=== PATIENT | male | born 1940 | race Caucasian/White ===

== ENCOUNTER 2017-08-04 15:24 | Emergency (ER) | payer MEDICARE, OTHER ==
--- OUTSIDE RECORDS SUMMARY | 2017-08-04 15:37 | XMS REPORT ---
:1940 External Reference #:[id number] Author Organization [employer] Address [address] [address] Phone [phone] Care Team Providers Name Role Phone Richie Ly MD Care Team Information Design Center Consultant Unavailable Richie Ly MD Primary Care Physician Unavailable Payers Type Date Identification Numbers Payment Provider Subscriber Commercial Expires: Policy Number: [id number] [facility] Tequila Martin 2008 Group Number: [id number] [address] PayID: [id number] [place] [address] Medigap Part B Effective: 2004 Policy Number: [id number] Medicare Tequila Martin PayID: [id number] [address] [place] [address] Medigap Part B Effective: Policy Number: [employer] Tequila Martin 2009 [id number] Group Number: [id number] [address] PayID: [id number] [place] [address] Advance Directives Type Date Description Status Comment Other Directive 04/06/2017 Health Care Proxy Current and Verified Problems Date Description Provider Status Onset: 05/15/2007 Hydrocele Michael Ramirez M.D.,FACP Onset: 08/28/2015 History of melanoma in situ of Michael Ramirez skin Sofie,FACP Onset: 05/15/2007 Hyperlipidemia Michael Ramirez M.D.,FACP Onset: 05/15/2007 Impacted cerumen Michael Ramirez M.D.,FACP Onset: 12/30/2013 Benign prostatic hypertrophy Richie Ly, Active without outflow obstruction Sofie,FACP Onset: 04/04/2017 Obstructive sleep apnea syndrome Wendi Ignacio MD Active Onset: 05/15/2007 Benign essential hypertension Richie Ly, Inactive Sofie,FACP Inactive: 12/30/2013 Onset: 01/26/2017 Difficulty breathing Wendi Ignacio MD Inactive Inactive: 07/07/2017 Onset: 06/15/2011 Chronic Venous Embolism & Richie Ly M.D.,FACP Resolved Thrombosis, Other Specified Veins Resolved: 12/30/2013 Onset: 07/13/2011 Current tear of medial Jacquelyn Shellie Crawley.Christel. Resolved cartilage AND/OR meniscus of knee Resolved: 12/30/2013 Onset: 05/20/2015 Malignant melanoma of scalp Richie Ly M.D.,FACP Resolved and/or neck Resolved: 08/28/2015 Onset: 05/20/2015 Onur melanoma level 1 Richie Ly M.D.,FACP Resolved Resolved: 08/28/2015 Family History Date Family Member(s) Problem(s) Comments Father Peripheral Vascular Disease (PVD) Father due to Unknown Causes () Mother due to 87 () Siblings None Social History Type Date Description Comments Marital Status Marital Status Significant Other in [place] Occupation Retired civil/env engineering Cigarette Use Quit at age 18 ETOH Use 12/09/2016 Consumes 2 glasses of wine per day Recreational Drug Use Denies Drug Use Smoking Patient is a former quit at age 18-began at smoker age 16. Daily Caffeine Consumes on average 4 cups of regular coffee per day Exercise Type/Frequency 12/09/2016 Exercises regularly Walks, gardens, plays squash General Hx Text 1 daughter, Lives in [place] Allergies, Adverse Reactions, Alerts Date Description Reaction Status Severity Comments 05/15/2007 Codeine active 05/15/2007 Vioxx active 08/08/2011 Hydrocodone VOMITING active Medications Medication Date Status Form Strength Qnty SIG Indications Ordering Provider Finasteride 07/22/ Active Tablets 5mg 90tabs qd po Richie Ly M.D.,FACP Cialis / Active Tablets 20mg 1/2- 1 as Unknown 0000 needed as directed Chondroitin / Active Capsules 1500mg 1 cap bid Unknown Sulfate 0000 Fluticasone 12/09/ Hx Suspension 50mcg/Act 16unit 1 spray Richie Propionate 2017 - s each Nancy. Malachi, 01/25/ nostril in Devin.Ludmila,FACP 2017 the evening Ciclopirox 12/30/ Hx Kit 8&5% 3bottl topical qd 681.11 Richie Topical 2014 - es for 6 D. Malachi, Solution Kit 12/30/ days, Sofie,FACP 2013 remove q week, repeat up to 48 wks Terbinafine 12/30/ Hx Tablets 250mg 45tabs take one 681.11 Richie HCL 2013 - tablet by Ludmila Ly, 08/28/ mouth one Sofie,FACP 2016 time daily for 12 weeks Ciclopirox 09/26/ Hx Solution 8% 3bottl topical qd Richie Nail Lacquer 2012 - es for 6 D. Malachi, 12/30/ days, Sofie,FACP 2013 remove q week, repeat up to 48 wks Debrox 07/13/ Hx Solution 6.5% 15ml 5 gtts to Jacquelyn 2012 - both ears [place] 05/31/ x 3 days tson, N.P. 2011 Ciclopirox 09/03/ Hx Solution 8% 3bottl topical qd Richie Nail Lacquer 2010 - es for 6 D. Malachi, 05/31/ daysSofie,FACP 2011 remove q week, repeat up to 48 wks Avodart 07/22/ Hx Capsules 0.5mg 30caps 1 po qd Richie 2010 Joe Ly, 07/22/ MGueroDGuero,FACP 2010 Fish Oil 07/22/ Hx Capsules 1000mg 1 po bid Richie 2010 Joe Ly, 06/15/ M.D.,FACP 2010 Multivitamin/ 05/14/ Hx Capsules 1 PO qd Richie Minerals 2007 - Ludmila Ly, 07/22/ MGueroDGuero,FACP 2010 Vitamin C 05/14/ Hx Tablets 250mg po qd Richie 2007 Joe Ly, 01/20/ M.D.,FACP 2010 Tamsulosin / Hx Capsules 0.4mg 30caps patient Unknown HCL 0000 - d/c'ed 2012 Advil / Hx Capsules 200mg 100cap prn Unknown 0000 - s 2016 Glucosamine / Hx Capsules 1 po qd Unknown 0000 - 2015 Medications Administered in Office Medication Date Status Form Strength Qnty SIG Indications Ordering Provider Depomedrol Administered Injection Dirk Cameron, 80MG 012 M.D. Depomedrol Administered Injection Dirk Cameron, 80MG 012 M.D. Depomedrol Administered Injection Dirk Cameron, 80MG 011 M.D. Immunizations CPT Code Status Date Vaccine Lot # [id number] Given 05/17/2017 Influenza Virus Vaccine, Quadrivalent, Split, Preservative Free [id number] Given 04/14/2016 Fluzone Vaccine [id number] Given 08/28/2015 Pneumococcal Conjugate Vaccine 13 Valent For [id number] Intramuscular Use 83496 Given 05/28/2015 Flu Vaccine Split Virus Preservative Free For Indiv 3Yr Older 04848 Given 04/11/2012 Influenza Virus 3Yrs & Over 82289 Given 08/08/2011 Tdap - Tetanus/Diptheria/Acellular Pertussis [id number] 19162 Given 04/11/2011 Influenza Virus 3Yrs & Over 13779 Given 04/11/2010 Influenza Virus 3Yrs & Over 09908 Given 07/07/2008 Zoster (Zostavax) [id number] 99951 Given 05/14/2008 Pneumonia Vaccine [id number] Given 05/14/2008 Pneumonia Vaccine [id number] Vital Signs Date Vital Result Comment 07/07/2017 Weight 215.00 lb w/boots Heart Rate 62 /min BP Systolic Sitting 122 mmHg BP Diastolic Sitting 80 mmHg Body Temperature 96.7 F O2 % BldC Oximetry 94 % 05/23/2017 Height 69.25 inches 5'9.25" Weight 213.50 lb Heart Rate 66 /min BP Systolic Sitting 120 mmHg Lue large cuff BP Diastolic Sitting 78 mmHg Lue large cuff Respiratory Rate 16 /min O2 % BldC Oximetry 95 % On Ra BMI (Body Mass Index) 31.3 kg/m2 04/06/2017 Height 69.25 inches 5'9.25" Weight 213.19 lb BMI (Body Mass Index) 31.3 kg/m2 04/04/2017 Height 69.25 inches 5'9.25" Weight 216.00 lb Heart Rate 72 /min BP Systolic Sitting 124 mmHg BP Diastolic Sitting 80 mmHg Respiratory Rate 14 /min O2 % BldC Oximetry 96 % BMI (Body Mass Index) 31.7 kg/m2 01/26/2017 Height 69.25 inches 5'9.25" Weight 213.00 lb Heart Rate 60 /min BP Systolic Sitting 136 mmHg BP Diastolic Sitting 88 mmHg Respiratory Rate 14 /min O2 % BldC Oximetry 96 % BMI (Body Mass Index) 31.2 kg/m2 Neck Circumference in inches 16 12/09/2016 Height 69.25 inches 5'9.25" Weight 208.50 lb Heart Rate 64 /min BP Systolic Sitting 138 mmHg BP Diastolic Sitting 82 mmHg BP Systolic Recheck 132 mmHg BP Diastolic Recheck 85 mmHg Body Temperature 97.9 F O2 % BldC Oximetry 97 % BMI (Body Mass Index) 30.6 kg/m2 08/28/2015 Height 69.5 inches 5'9.50" Weight 214.38 lb Heart Rate 62 /min BP Systolic Sitting 122 mmHg BP Diastolic Sitting 88 mmHg Body Temperature 96.2 F O2 % BldC Oximetry 95 % BMI (Body Mass Index) 31.2 kg/m2 12/30/2013 Height 69.5 inches 5'9.50" Weight 208.50 lb Heart Rate 64 /min BP Systolic Sitting 116 mmHg BP Diastolic Sitting 74 mmHg Body Temperature 98.2 F BMI (Body Mass Index) 30.3 kg/m2 11/14/2012 Height 69.5 inches 5'9.50" Weight 209.50 lb Heart Rate 62 /min BP Systolic Sitting 124 mmHg BP Diastolic Sitting 84 mmHg BMI (Body Mass Index) 30.5 kg/m2 05/31/2012 Height 69.75 inches 5'9.75" Weight 212.00 lb Heart Rate 76 /min BP Systolic Sitting 110 mmHg BP Diastolic Sitting 80 mmHg BMI (Body Mass Index) 30.6 kg/m2 08/08/2011 Height 69.75 inches 5'9.75" Weight 212.00 lb Heart Rate 68 /min BP Systolic Sitting 135 mmHg BP Diastolic Sitting 88 mmHg BMI (Body Mass Index) 30.6 kg/m2 07/13/2011 Height 70 inches 5'10" Weight 215.00 lb Heart Rate 58 /min BP Systolic Sitting 132 mmHg l BP Diastolic Sitting 84 mmHg l BMI (Body Mass Index) 30.8 kg/m2 06/17/2011 Height 70 inches 5'10" Weight 205.00 lb Heart Rate 72 /min BP Systolic 130 mmHg BP Diastolic 85 mmHg BMI (Body Mass Index) 29.4 kg/m2 06/15/2011 Height 69.5 inches 5'9.50" Weight 211.25 lb Heart Rate 64 /min BP Systolic Sitting 132 mmHg BP Diastolic Sitting 88 mmHg BMI (Body Mass Index) 30.7 kg/m2 07/22/2010 Height 70.25 inches 5'10.25" Weight 210.00 lb Heart Rate 66 /min BP Systolic Sitting 136 mmHg BP Diastolic Sitting 80 mmHg BMI (Body Mass Index) 29.9 kg/m2 07/01/2010 Height 70.25 inches 5'10.25" Weight 207.00 lb Heart Rate 72 /min BP Systolic Sitting 110 mmHg BP Diastolic Sitting 80 mmHg BMI (Body Mass Index) 29.5 kg/m2 05/14/2009 Height 70.25 inches 5'10.25" Weight 207.50 lb Heart Rate 56 /min BP Systolic Sitting 126 mmHg BP Diastolic Sitting 76 mmHg Respiratory Rate 16 /min Body Temperature 97.5 F BMI (Body Mass Index) 29.6 kg/m2 11/28/2008 Weight 208.00 lb Heart Rate 67 /min BP Systolic Sitting 136 mmHg BP Diastolic Sitting 84 mmHg O2 % BldC Oximetry 96 % 10/28/2008 Height 70 inches 5'10" Weight 209.00 lb Heart Rate 72 /min BP Systolic Sitting 152 mmHg BP Diastolic Sitting 80 mmHg BMI (Body Mass Index) 30.0 kg/m2 05/14/2008 Height 70 inches 5'10" Weight 210.00 lb Heart Rate 72 /min BP Systolic Sitting 126 mmHg BP Diastolic Sitting 78 mmHg BMI (Body Mass Index) 30.1 kg/m2 05/15/2007 Height 70 inches 5'10" Weight 214.00 lb Heart Rate 66 /min BP Systolic Sitting 124 mmHg BP Diastolic Sitting 80 mmHg BMI (Body Mass Index) 30.7 kg/m2 Results Test Date Test Result H/L Range Note Laboratory test finding 12/06/2016 PSA Screening 1.178 ng/mL 0-4.0 1 Lipid Profile (Trig/Chol/HDL) 12/06/2016 Triglycerides 77 mg/dL 2 Cholesterol 178 mg/dL 3 HDL Cholesterol 55.5 mg/dL 4 LDL Cholesterol 107 mg/dL 5 Basic Metabolic Panel 12/06/2016 Sodium 138 mmol/L 133-145 Potassium 4.3 mmol/L 3.5-5.0 Chloride 106 mmol/L 101-111 Co2 Carbon Dioxide 26 mmol/L 22-32 Anion Gap 6 mmol/L 2-11 Glucose 82 mg/dL 70-100 Blood Urea Nitrogen 22 mg/dL 6-24 Creatinine 0.78 mg/dL 0.67-1.17 BUN/Creatinine Ratio 28.2 High 8-20 Calcium 9.0 mg/dL 8.6-10.3 Egfr Non- 96.5 >60 Egfr 124.1 >60 6 CBC Auto Diff 12/06/2016 White Blood Count 5.5 10^3/uL 3.5-10.8 Red Blood Count 4.44 10^6/uL 4.0-5.4 Hemoglobin 13.7 g/dL Low 14.0-18.0 Hematocrit 42 % 42-52 Mean Corpuscular Volume 94 fL 80-94 Mean Corpuscular Hemoglobin 31 pg 27-31 Mean Corpuscular HGB Conc 33 g/dL 31-36 Red Cell Distribution Width 14 % 10.5-15 Platelet Count 190 10^3/uL 150-450 Mean Platelet Volume 9 um3 7.4-10.4 Abs Neutrophils 2.8 10^3/uL 1.5-7.7 Abs Lymphocytes 2.1 10^3/uL 1.0-4.8 Abs Monocytes 0.4 10^3/uL 0-0.8 Abs Eosinophils 0.2 10^3/uL 0-0.6 Abs Basophils 0 10^3/uL 0-0.2 Abs Nucleated RBC 0 10^3/uL Granulocyte % 50.8 % 38-83 Lymphocyte % 37.8 % 25-47 Monocyte % 7.8 % 1-9 Eosinophil % 3.1 % 0-6 Basophil % 0.5 % 0-2 Nucleated Red Blood Cells % 0 Lipid Profile (Trig/Chol/HDL) 07/09/2015 Triglycerides 79 mg/dL 7 Cholesterol 203 mg/dL 8 HDL Cholesterol 61.1 mg/dL 9 LDL Cholesterol 126 mg/dL 10 Basic Metabolic Panel 07/09/2015 Sodium 138 mmol/L 133-145 Potassium 4.2 mmol/L 3.5-5.0 Chloride 104 mmol/L 101-111 Co2 Carbon Dioxide 27 mmol/L 22-32 Anion Gap 7 mmol/L 2-11 Glucose 92 mg/dL 70-100 Blood Urea Nitrogen 15 mg/dL 6-24 Creatinine 0.86 mg/dL 0.67-1.17 BUN/Creatinine Ratio 17.4 8-20 Calcium 9.1 mg/dL 8.6-10.3 Egfr Non- 86.5 >60 Egfr 111.2 >60 11 Laboratory test 06/11/2015 Surgical Pathology SEE RESULT BELOW 12 finding Laboratory test 06/11/2015 Surgical Pathology SEE RESULT BELOW 13 finding Laboratory test 04/14/2015 PSA Diagnostic 0.939 ng/mL 0-4.0 14 finding Laboratory test 03/20/2014 Erythrocyte Sed Rate 10 mm/Hr 0-40 finding CBC With Manual Diff 03/20/2014 White Blood Count 4.7 10^3/uL Low 4.8- 10.8 Red Blood Count 4.29 10^6/uL 4.0-5.4 Hemoglobin 13.7 g/dL Low 14.0-18.0 Hematocrit 40 % Low 42-52 Mean Corpuscular Volume 94 fL 80-94 Mean Corpuscular Hemoglobin 32 pg High 27-31 Mean Corpuscular HGB Conc 34 g/dL 31-36 Red Cell Distribution Width 13 % 10.5-15 Platelet Count 186 10^3/uL 150-450 Mean Platelet Volume 8 um3 7.4-10.4 Abs Neutrophils 2.4 10^3/uL 1.5-7.7 Abs Lymphocytes 1.7 10^3/uL 1.0-4.8 Abs Monocytes 0.4 10^3/uL 0-0.8 Abs Eosinophils 0.2 10^3/uL 0-0.6 Abs Basophils 0 10^3/uL 0-0.2 Abs Nucleated RBC 0 10^3/uL Neutrophil % 51 % 38-83 Lymphocytes % 35 % 25-47 Monocytes % 6 % 0-13 Eosinophils % 5 % 0-6 Reactive Lymph % 3 % 0-6 RBC Morphology Normal Normal Basic Metabolic Panel 03/20/2014 Sodium 137 mmol/L 133-145 Potassium 4.2 mmol/L 3.7-5.6 Chloride 106 mmol/L 101-111 Co2 Carbon Dioxide 27 mmol/L 22-32 Anion Gap 4 mmol/L 2-11 Glucose 90 mg/dL 70-100 Blood Urea Nitrogen 14 mg/dL 6-24 Creatinine 0.85 mg/dL 0.67-1.17 BUN/Creatinine Ratio 16.5 8-20 Calcium 8.8 mg/dL 8.6-10.3 Egfr Non- 87.9 >60 Egfr 113.0 >60 15 Liver Function Panel 03/20/2014 Total Protein 6.2 g/dL Low 6.4-8.9 Albumin 4.1 g/dL 3.2-5.2 Globulin 2.1 g/dL 2-4 Albumin/Globulin Ratio 2.0 1-3 Total Bilirubin 0.70 mg/dL 0.2-1.0 Direct Bilirubin 0.10 mg/dL 0.03-0.18 Indirect Bilirubin 0.6 mg/dL 0.3-1.0 Alkaline Phosphatase 56 U/L 34-104 Alt 11 U/L 7-52 Ast 17 U/L 13-39 Lipid Profile (Trig/Chol/HDL) 12/24/2013 Triglycerides 99 mg/dL 16, 17 Cholesterol 195 mg/dL 16, 18 HDL Cholesterol 57.9 mg/dL 16, 19 LDL Cholesterol 117 mg/dL 16, 20 Laboratory test finding 12/24/2013 PSA Screening 1.525 ng/mL 0-4.000 16 , 21 Laboratory test finding 02/27/2013 PSA Screening 1.0 ng/mL 0-4.0 22 Lipid Profile (Trig/Chol/HDL) 11/07/2012 Triglycerides 56 mg/dL 40-200 Cholesterol 192 mg/dL Less than 200 HDL Cholesterol 61 mg/dL High 40-60 23 Cholesterol/HDL Ratio 3.2 Average 1-4.44 LDL Cholesterol 119.8 mg/dL High Less Than 100 24 Comp Metabolic Panel 11/07/2012 Sodium 143 mmol/L 133-145 Potassium 4.3 mmol/L 3.5-5.0 Chloride 110 mmol/L 101-111 Co2 Carbon Dioxide 28.0 mmol/L 22-32 Anion Gap 5.0 mmol/L 2-11 Glucose 83 mg/dL 70-100 Blood Urea Nitrogen 20 mg/dL 6-24 Creatinine 0.90 mg/dL 0.50-1.40 BUN/Creatinine Ratio 22.2 High 8-20 Calcium 9.4 mg/dL 8.1-9.9 Total Protein 6.3 g/dL 6.2-8.1 Albumin 3.9 g/dL 3.2-5.2 Globulin 2.4 g/dL 2-4 Albumin/Globulin Ratio 1.6 1-3 Total Bilirubin 1.5 mg/dL 0.4-1.5 Alkaline Phosphatase 60 U/L 30-110 Alt 17 U/L 14-54 Ast 23 U/L 12-42 Egfr Non- 82.7 >60 Egfr 106.4 >60 25 CBC Auto Diff 11/07/2012 White Blood Count 5.2 10^3/uL 4.8-10.8 Red Blood Count 4.48 10^6/uL 4.0-5.4 Hemoglobin 14.5 g/dL 14.0-18.0 Hematocrit 42 % 42-52 Mean Corpuscular Volume 93 fL 80-94 Mean Corpuscular Hemoglobin 32 pg High 27-31 Mean Corpuscular HGB Conc 35 g/dL 31-36 Red Cell Distribution Width 14 % 10.5-15 Platelet Count 202 10^3/uL 150-450 Mean Platelet Volume 8 um3 7.4-10.4 Abs Neutrophils 2.5 10^3/uL 1.5-7.7 Abs Lymphocytes 1.9 10^3/uL 1.0-4.8 Abs Monocytes 0.4 10^3/uL 0-0.8 Abs Eosinophils 0.2 10^3/uL 0-0.6 Abs Basophils 0 10^3/uL 0-0.2 Abs Nucleated RBC 0.01 10^3/uL Granulocyte % 49.0 % 38-83 Lymphocyte % 37.1 % 25-47 Monocyte % 8.7 % 1-9 Eosinophil % 4.5 % 0-6 Basophil % 0.7 % 0-2 Nucleated Red Blood Cells % 0.1 Laboratory test finding 09/07/2011 Vitamin B12 350 pg/mL 180-914 CBC Auto Diff 09/07/2011 White Blood Count 5.5 CUMM 4.8-10.8 Red Cell Count 4.21 CUMM Low 4.6-6.2 Hemoglobin 13.6 g/dL Low 14.0-18.0 Hematocrit 40 % Low 42-52 Mean Corpuscular Volume 94 um3 80-94 Mean Corpuscular Hemoglob 32 pg High 27-31 Mean Corpuscular HGB Cone 34 g/dL 32-36 Redcell Distribution WDTH 14 % 10.5-15 Platelet Count 191 CUMM 150-450 Mean Platelet Volume 8.5 um3 7.4-10.4 Gran % 55.4 % 38-83 Lymph % 33.6 % 25-47 Mononuclear % 7.5 % 1-9 Eosinophil % 3.1 % 0-6 Basophil % 0.4 % 0-2 Abs Lymphs 1.8 1.0-4.8 Abs Mononuclear 0.4 0-0.8 Absolute Neutrophil Count 3.1 1.5-7.7 Abs Eosinophils 0.2 0-0.6 Abs Basophils 0 0-0.2 Lipid Profile (Trig/Chol/HDL) 08/02/2011 Triglyceride 83 mg/dL 40-200 Cholesterol 192 mg/dL Less Than 200 26 High Density Lipoprotein 54 mg/dL 40-60 27 Cholesterol/HDL Ratio 3.56 AVERAGE 1-4.97 Low Density Lipoprotein 121 mg/dL High Less Than 100 28 Laboratory test finding 08/02/2011 CPK (Creatine Kinase) 81 U/L 0-200 Comp Metabolic Panel 07/13/2011 Sodium 139 mmol/L 135-145 Potassium 4.5 mmol/L 3.5-5.0 Chloride 104 mmol/L 101-111 Co2 (Carbon Dioxide) 29.0 mmol/L 22-32 Anion Gap 6.0 mmol/L 2-11 29 Glucose 76 mg/dL 70-100 BUN 21 mg/dL 6-24 Creatinine 0.9 mg/dL 0.50-1.40 One Over Creatinine 1.11 BUN/Creatinine Ratio 23.3 High 8-20 Calcium 9.2 mg/dL 8.1-9.9 Total Protein 6.2 GM/DL 6.2-8.1 Albumin 3.9 GM/DL 3.2-5.2 Globulin 2.3 GM/DL 2-4 Albumin/Globulin Ratio 1.7 1-3 Bilirubin Total 0.7 mg/dL 0.4-1.5 30 Alkaline Phosphatase 72 U/L 39-117 Alt (SGPT) 16 U/L Low 17-63 Ast (Sgot) 18 U/L 12-42 eGFR Non- 82.9 > 60 eGFR 106.7 > 60 31 CBC Auto Diff 07/13/2011 White Blood Count 6.9 CUMM 4.8-10.8 Red Cell Count 4.21 CUMM Low 4.6-6.2 Hemoglobin 13.3 g/dL Low 14.0-18.0 Hematocrit 39 % Low 42-52 Mean Corpuscular Volume 93 um3 80-94 Mean Corpuscular Hemoglob 32 pg High 27-31 Mean Corpuscular HGB Cone 34 g/dL 32-36 Redcell Distribution WDTH 13 % 10.5-15 Platelet Count 231 CUMM 150-450 Mean Platelet Volume 8.3 um3 7.4-10.4 Gran % 61.7 % 38-83 Lymph % 27.3 % 25-47 Mononuclear % 7.5 % 1-9 Eosinophil % 3.1 % 0-6 Basophil % 0.4 % 0-2 Abs Lymphs 1.9 1.0-4.8 Abs Mononuclear 0.5 0-0.8 Absolute Neutrophil Count 4.2 1.5-7.7 Abs Eosinophils 0.2 0-0.6 Abs Basophils 0 0-0.2 Protime 07/13/2011 Inr 0.92 0.88-1.13 32 Protime 10.8 SEC 10.3-13.5 33 Urinalysis 07/13/2011 Ua Color YELLOW Yellow Appearance-Urine CLEAR Clear Specific [place]-Ur 1.021 1.010-1.030 Esterase-Urine NEGATIVE Negative Nitrite NEGATIVE Negative Vktzgowfufja-Ij-KHX NEGATIVE Negative Protein-Urine NEGATIVE Negative PH-Urine 5.5 5-9 Blood-Urine NEGATIVE Negative Ketones-Urine NEGATIVE Negative Bilirubin-Ur NEGATIVE Negative Glucose-Urine NEGATIVE Negative Laboratory test finding 04/07/2011 PSA,Diagnostic 0.92 NG/ML 0-4 34 Basic Metabolic Panel 07/16/2010 Sodium 139 mmol/L 135-145 Potassium 4.5 mmol/L 3.5-5.0 Chloride 105 mmol/L 101-111 Co2 (Carbon Dioxide) 27.0 mmol/L 22-32 Anion Gap 7.0 mmol/L 2-11 35 Glucose 87 mg/dL 70-100 BUN 16 mg/dL 6-24 Creatinine 0.80 mg/dL 0.50-1.40 One Over Creatinine 1.20 BUN/Creatinine Ratio 20.0 8-20 Calcium 9.1 mg/dL 8.1-9.9 eGFR Non- 101.3 > 60 eGFR 122.6 > 60 36 Lipid Profile (Trig/Chol/HDL) 07/16/2010 Triglyceride 107 mg/dL 40-200 Cholesterol 213 mg/dL High Less Than 200 37 High Density Lipoprotein 64 mg/dL High 40-60 38 Cholesterol/HDL Ratio 3.33 AVERAGE 1-4.97 Low Density Lipoprotein 128 mg/dL High Less Than 100 39 MRSA/Vre Screen 09/25/2009 MRSA/Vre Culture NFICU 40 Urinalysis 09/25/2009 Ua Color YELLOW Yellow Appearance-Urine CLEAR Clear Specific [place]-Ur 1.031 High 1.010-1.030 Esterase-Urine NEGATIVE Negative Nitrite NEGATIVE Negative Lbhcneyelxsb-[id number]-KQS NEGATIVE Negative Protein-Urine NEGATIVE Negative PH-Urine 7.0 5-9 Blood-Urine NEGATIVE Negative Ketones-Urine NEGATIVE Negative Bilirubin-Ur NEGATIVE Negative Glucose-Urine NEGATIVE Negative CBC With Electronic Diff Stat 09/25/2009 White Blood Count 8.7 CUMM 4.8- 10.8 Red Cell Count 4.50 CUMM Low 4.6-6.2 Hemoglobin 13.8 g/dL Low 14.0-18.0 Hematocrit 43 % 42-52 Mean Corpuscular Volume 94 um3 80-94 Mean Corpuscular Hemoglob 31 pg 27-31 Mean Corpuscular HGB Cone 33 g/dL 32-36 Redcell Distribution WDTH 13 % 10.5-15 Platelet Count 239 CUMM 150-450 Mean Platelet Volume 7.3 um3 Low 7.4-10.4 Gran % 66.2 % 38-83 Lymph % 24.9 % Low 25-47 Mononuclear % 6.5 % 1-9 Eosinophil % 2.0 % 0-6 Basophil % 0.4 % 0-2 Abs Lymphs 2.2 1.0-4.8 Abs Mononuclear 0.6 0-0.8 Absolute Neutrophil Count 5.8 1.5-7.7 Abs Eosinophils 0.2 0-0.6 Abs Basophils 0 0-0.2 Protime Stat 09/25/2009 Inr 0.97 0.97-1.03 41 Protime 11.4 SEC Low 11.5-12.2 42 PTT (Aptt) Stat 09/25/2009 PTT (Aptt) 23.3 Low 25.15-38.53 43 CMP Panel Stat 09/25/2009 Sodium 136 mmol/L 135-145 Potassium 3.5 mmol/L 3.5-5.0 Chloride 104 mmol/L 101-111 Co2 (Carbon Dioxide) 24.0 mmol/L 22-32 Anion Gap 8.0 mmol/L 2-11 44 Glucose 145 mg/dL High 70-100 45 BUN 19 mg/dL 6-24 Creatinine 0.71 mg/dL 0.50-1.40 One Over Creatinine 1.40 BUN/Creatinine Ratio 26.8 High 8-20 Calcium 8.5 mg/dL 8.1-9.9 46 Total Protein 6.4 GM/DL 6.2-8.1 Albumin 4.0 GM/DL 3.2-5.2 Globulin 2.4 GM/DL 2-4 Albumin/Globulin Ratio 1.7 1-3 Bilirubin Total 1.0 mg/dL 0.4-1.5 47 Alkaline Phosphatase 70 U/L 39-117 Alt (SGPT) 15 U/L Low 17-63 Ast (Sgot) 23 U/L 12-42 eGFR Non- 116.6 > 60 eGFR 141.1 > 60 48 Magnesium Stat 09/25/2009 Magnesium 2.2 mg/dL 1.7-2.6 Laboratory test finding 09/25/2009 Troponin-I (TnI) 0 NG/ML 49 TSH 1.31 MIU/ML 0.34-5.60 C Reactive Protein 09/25/2009 C Reactive Protein < 0.5 mg/dL Less Than 0.5 Urgent Stat Erythrocyte Sed 09/25/2009 Erythrocyte Sed Rate 10 MM/HR 0-40 Rate Basic Metabolic Panel 05/07/2009 Sodium 138 mmol/L 135-145 Potassium 4.5 mmol/L 3.5-5.0 Chloride 107 mmol/L 101-111 Co2 (Carbon Dioxide) 27.0 mmol/L 22-32 Anion Gap 4.0 mmol/L 2-11 50 Glucose 89 mg/dL 70-100 51 BUN 17 mg/dL 6-24 Creatinine 0.80 mg/dL 0.50-1.40 One Over Creatinine 1.20 BUN/Creatinine Ratio 21.3 High 8-20 Calcium 8.9 mg/dL 8.1-9.9 52 eGFR Non- 101.6 > 60 eGFR 122.9 > 60 53 Lipid Profile (Trig/Chol/HDL) 05/07/2009 Triglyceride 62 mg/dL 40-200 Cholesterol 187 mg/dL Less Than 200 54 High Density Lipoprotein 62 mg/dL High 40-60 55 Cholesterol/HDL Ratio 3.02 AVERAGE 1-4.97 Low Density Lipoprotein 113 mg/dL High Less Than 100 56 Laboratory test finding 05/07/2009 PSA Screening 1.53 NG/ML 0-4 57 Basic Metabolic Panel 05/05/2009 Sodium 136 mmol/L 135-145 58 Potassium 4.4 mmol/L 3.5-5.0 58 Chloride 105 mmol/L 101-111 58 Co2 (Carbon Dioxide) 27.0 mmol/L 22-32 58 Anion Gap 4.0 mmol/L 2-11 58, 59 Glucose 79 mg/dL 70-100 58, 60 BUN 15 mg/dL 6-24 58 Creatinine 0.80 mg/dL 0.50-1.40 58 One Over Creatinine 1.20 58 BUN/Creatinine Ratio 18.8 8-20 58 Calcium 9.3 mg/dL 8.1-9.9 58, 61 eGFR Non- 101.6 > 60 58 eGFR 122.9 > 60 58, 62 Lipid Profile (Trig/Chol/HDL) 05/05/2009 Triglyceride 66 mg/dL 40-200 58 Cholesterol 210 mg/dL High Less Than 200 58, 63 High Density Lipoprotein 69 mg/dL High 40-60 58, 64 Cholesterol/HDL Ratio 3.04 AVERAGE 1-4.97 58 Low Density Lipoprotein 128 mg/dL High Less Than 100 58, 65 Laboratory test finding 05/05/2009 PSA Screening 1.88 NG/ML 0-4 58, 66 Comp Metabolic Panel 05/16/2008 Sodium 140 mmol/L 135-145 67 Potassium 4.4 mmol/L 3.5-5.0 67 Chloride 106 mmol/L 101-111 67 Co2 (Carbon Dioxide) 28.0 mmol/L 22-32 67 Anion Gap 6.0 mmol/L 2-11 67, 68 Glucose 88 mg/dL 70-100 67, 69 BUN 14 mg/dL 6-24 67 Creatinine 0.78 mg/dL 0.50-1.40 67 One Over Creatinine 1.20 67 BUN/Creatinine Ratio 17.9 8-20 67 Calcium 9.2 mg/dL 8.1-9.9 67, 70 Total Protein 6.5 GM/DL 6.2-8.1 67 Albumin 3.9 GM/DL 3.2-5.2 67 Globulin 2.6 GM/DL 2-4 67 Albumin/Globulin Ratio 1.5 1-3 67 Bilirubin Total 1.2 mg/dL 0.4-1.5 67 Alkaline Phosphatase 63 U/L 39-117 67 Alt (SGPT) 18 U/L 17-63 67 Ast (Sgot) 22 U/L 12-42 67 Lipid Profile (Trig/Chol/HDL) 05/16/2008 Triglyceride 82 mg/dL 40-200 67 Cholesterol 214 mg/dL High Less Than 200 67, 71 High Density Lipoprotein 69 mg/dL High 40-60 67, 72 Cholesterol/HDL Ratio 3.10 AVERAGE 1-4.97 67 Low Density Lipoprotein 129 mg/dL High Less Than 100 67, 73 Laboratory test finding 05/16/2008 PSA Screening 1.73 NG/ML 0-4 67, 74 Laboratory test finding 05/08/2007 PSA Screening 1.36 NG/ML 0-4 75, 76 Lipid Profile 05/08/2007 Cholesterol/HDL Ratio 3.22 AVERAGE 1-4.97 75 (Trig/Chol/HDL) Cholesterol 219 mg/dL High Less Than 200 75, 77 Triglyceride 59 mg/dL 40-200 75 High Density Lipoprotein 68 mg/dL High 40-60 75, 78 Low Density Lipoprotein 139 mg/dL High Less Than 100 75, 79 Basic Metabolic Panel 05/08/2007 One Over Creatinine 1.11 75 Anion Gap 4.0 mmol/L 2-11 75, 80 BUN 11 mg/dL 6-24 75 Calcium 9.2 mg/dL 8.7-10.2 75 Chloride 109 mmol/L 101-111 75 Co2 (Carbon Dioxide) 28.0 mmol/L 22-32 75 Glucose 96 mg/dL 70-105 75 Potassium 4.5 mmol/L 3.5-5.0 75 Sodium 141 mmol/L 135-145 75 BUN/Creatinine Ratio 12.2 8-20 75 Creatinine 0.9 mg/dL 0.5-1.4 75 1 Serum levels of PSA measured using the [employer] DXI [employer]br[employer] immunoassay should not be interpreted as absolute evidence of the presence or absence of disease. The PSA value should be used in conjunction with other pertinent clinical diagnostic procedures. The values obtained with different assay methods or kits cannot be used interchangeably. 2 Desirable <150 Borderline high 150-199 High 200-499 Very High >500 3 Desirable <200 Borderline high 200-239 High >239 4 Low <40 Desirable: 40-60 High: >60 5 Desirable: <100 mg/dL Near Optimal: 100-129 mg/dL Borderline High: 130-159 mg/dL High: 160-189 mg/dL Very High: >189 mg/dL 6 Because ethnic data is not always readily available, this report includes an eGFR for both -Americans and non- Americans. The National Kidney Disease Education Program (NKDEP) does not endorse the use of the MDRD equation for patients that are not between the ages of 18 and 70, are , have extremes of body size, muscle mass, or nutritional status, or are non- or non-. According to the National Kidney Foundation, irrespective of diagnosis, the stage of the disease is based on the level of kidney function: Stage Description GFR(mL/min/1.73 m(2)) 1 Kidney damage with normal or decreased GFR 90 2 Kidney damage with mild decrease in GFR 60-89 3 Moderate decrease in GFR 30-59 4 Severe decrease in GFR 15-29 5 Kidney failure <15 (or dialysis) 7 Desirable <150 Borderline high 150-199 High 200-499 Very High >500 8 Desirable <200 Borderline high 200-239 High >239 9 Low <40 Desirable: 40-60 High: >60 10 Desirable: <100 mg/dL Near Optimal: 100-129 mg/dL Borderline High: 130-159 mg/dL High: 160-189 mg/dL Very High: >189 mg/dL 11 Because ethnic data is not always readily available, this report includes an eGFR for both -Americans and non- Americans. The National Kidney Disease Education Program (NKDEP) does not endorse the use of the MDRD equation for patients that are not between the ages of 18 and 70, are , have extremes of body size, muscle mass, or nutritional status, or are non- or non-. According to the National Kidney Foundation, irrespective of diagnosis, the stage of the disease is based on the level of kidney function: Stage Description GFR(mL/min/1.73 m(2)) 1 Kidney damage with normal or decreased GFR 90 2 Kidney damage with mild decrease in GFR 60-89 3 Moderate decrease in GFR 30-59 4 Severe decrease in GFR 15-29 5 Kidney failure <15 (or dialysis) 12 SEE RESULT BELOW Name: TEQUILA MARTIN : [address]: Michel Morris MD Acct: [id number] Unit: [id number] AGE: 75 Location: [facility] Re06/11/15 SEX: M Status: REG [facility] SPEC: [id number] ALEKS: 06/11/15-[address]: Michel Morris MD REQ: [id number] RECD: 06/11/15451 STATUS: PEDRO PABLO BEGUM DR: Richie Sierra MD _ ORDERED: LEVEL IV/3 FINAL DIAGNOSIS 1. Skin, occipital scalp, wide excision: -- Scar and adjacent residual actinic lentigo. -- Deep, tip, and lateral margins are clear. 2. Skin, wider 6-7:00 margin, occipital scalp, excision: -- Incidental nevoid lentigo involving actinically damaged skin. -- No evidence of neoplasia. 3. Skin, wider 11-1:00 margin, excisional scalp, excision: -- Incidental nevoid lentigo involving actinically damaged skin. -- No evidence of neoplasia. COMMENT: The previous lesion at this site ([id number] #3) has been completely and widely excised. PRE-OPERATIVE DIAGNOSIS Melanoma in situ occipital scalp; 1) suture martin 12 o'clock superior margin GROSS DESCRIPTION 1. The specimen is received in formalin labeled, Wide Excision Lesion Occipital Scalp, Suture Martin 12:00 Superior Margin, and consists of a 2.5 x 2.1 cm quinones pink ovoid portion of skin excised to a depth of 0.6 cm with a central 1.4 x 0.8 cm mottled quinones- pink area. There is an attached suture, which designates the 12:00 superior margin. The specimen is inked as follows: 9:00 half black, 3:00 half blue and 12:00 end green, serially sectioned from 12:00 to 6:00 and entirely submitted in cassettes A through E to include ends in cassette A. 2. The specimen is received in formalin labeled, Wider 6:00-7:00 Margin of Occipital Scalp Lesion, and consists of a 1.0 x 0.6 cm quinones white unoriented triangular skin fragment excised to a depth of 0.8 cm. The specimen is inked, trisected and submitted entirely in one CONTINUED ON NEXT PAGE * ML=Testing performed at Main Lab DEPARTMENT OF PATHOLOGY, [address] [place] [address] Carlitos Vincent M.D. Director [facility] # [id number] RUN DATE: 06/12/15 [facility] LAB LIVE PAGE 2 Patient: TEQUILA MARTIN Michelle [id number] (Continued) GROSS DESCRIPTION (Continued) GROSS DESCRIPTION (Continued) cassette. 3. The specimen is received in formalin labeled, Wider 11:00-1:00 Margin of Occipital Scalp Lesion, and consists of two quinones-pink unoriented triangular skin fragments measuring 2.1 x 0.7 cm excised to a depth of 0.7 cm and 2.5 x 0.8 excised to a depth of 0.8 cm. The specimen is inked, serially sectioned and entirely submitted in cassettes A through D to include smaller fragment in cassette A and B. Signed (signature on file) Madonna Schumacher MD 05/17 1553 END OF REPORT * ML=Testing performed at Main Lab DEPARTMENT OF PATHOLOGY, [address] [place] [address] Carlitos Vincent M.D. Director [facility] # [id number] 13 SEE RESULT BELOW Name: TEQUILA MARTIN : [address]: Michel Morris MD Acct: [id number] Unit: [id number] AGE: 75 Location: [facility] Re06/11/15 SEX: M Status: REG [facility] SPEC: [id number] ALEKS: 06/11/15-[address] [facility] [address]: Michel Morris MD REQ: [id number] RECD: 06/11/15 STATUS: PEDRO PALBO BEGUM DR: Richie Sierra MD _ ORDERED: [facility], LEVEL IV/[address] Benji Resendiz at [facility], [place], [place], outside accession number [id number], our surgical [id number] reported on 06/24/15 and received on . Original consultation report scanned into Pathology Consults. Final diagnosis: 1. 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 Surgical margins are free of carcinoma. 2. Skin, occipital scalp, wider 6 o'clock to 7 o'clock margin, excision: Extensive solar elastosis. Negative for tumor. 3. Skin, occipital scalp, wider 11 o'clock to 1 o'clock margin, excision: Actinic keratosis focally extending to peripheral inked surgical margin. Addendum Signed (signature on file) Carlitos Vincent MD 1135 FINAL DIAGNOSIS 1. Skin, occipital scalp, wide excision: -- Scar and adjacent residual actinic lentigo. -- Deep, tip, and lateral margins are clear. 2. Skin, wider 6-7:00 margin, occipital scalp, excision: -- Incidental nevoid lentigo involving actinically damaged skin. -- No evidence of neoplasia. 3. Skin, wider 11-1:00 margin, excisional scalp, excision: -- Incidental nevoid lentigo involving actinically damaged skin. -- No evidence of neoplasia. CONTINUED ON NEXT PAGE * ML=Testing performed at Main Lab DEPARTMENT OF PATHOLOGY, [address] [place] [address] Carlitos Vincent M.D. Director [facility] # [id number] RUN DATE: 06/25/15 [facility] LAB LIVE PAGE 2 Patient: TEQUILA MARTIN [id number] (Continued) FINAL DIAGNOSIS (Continued) COMMENT: The previous lesion at this site ([id number] #[id number]) has been completely and widely excised. PRE-OPERATIVE DIAGNOSIS Melanoma in situ occipital scalp; 1) suture martin 12 o'clock superior margin GROSS DESCRIPTION 1. The specimen is received in formalin labeled, Wide Excision Lesion Occipital Scalp, Suture Martin 12:00 Superior Margin, and consists of a 2.5 x 2.1 cm quinones pink ovoid portion of skin excised to a depth of 0.6 cm with a central 1.4 x 0.8 cm mottled quinones- pink area. There is an attached suture, which designates the 12:00 superior margin. The specimen is inked as follows: 9:00 half black, 3:00 half blue and 12:00 end green, serially sectioned from 12:00 to 6:00 and entirely submitted in cassettes A through E to include ends in cassette A. 2. The specimen is received in formalin labeled, Wider 6:00-7:00 Margin of Occipital Scalp Lesion, and consists of a 1.0 x 0.6 cm quinones white unoriented triangular skin fragment excised to a depth of 0.8 cm. The specimen is inked, trisected and submitted entirely in one cassette. 3. The specimen is received in formalin labeled, Wider 11:00-1:00 Margin of Occipital Scalp Lesion, and consists of two quinones-pink unoriented triangular skin fragments measuring 2.1 x 0.7 cm excised to a depth of 0.7 cm and 2.5 x 0.8 excised to a depth of 0.8 cm. The specimen is inked, serially sectioned and entirely submitted in cassettes A through D to include smaller fragment in cassette A and B. Signed (signature on file) Madonna Schumacher MD 05/17 1553 END OF REPORT * ML=Testing performed at Main Lab DEPARTMENT OF PATHOLOGY, [address] [place] [address] Carlitos Vincent M.D. Director [facility] # [id number] 14 Serum levels of PSA measured using the [employer] DXI Hybritech immunoassay should not be interpreted as absolute evidence of the presence or absence of disease. The PSA value should be used in conjunction with other pertinent clinical diagnostic procedures. The values obtained with different assay methods or kits cannot be used interchangeably. 15 Because ethnic data is not always readily available, this report includes an eGFR for both -Americans and non- Americans. The National Kidney Disease Education Program (NKDEP) does not endorse the use of the MDRD equation for patients that are not between the ages of 18 and 70, are , have extremes of body size, muscle mass, or nutritional status, or are non- or non-. According to the National Kidney Foundation, irrespective of diagnosis, the stage of the disease is based on the level of kidney function: Stage Description GFR(mL/min/1.73 m(2)) 1 Kidney damage with normal or decreased GFR 90 2 Kidney damage with mild decrease in GFR 60-89 3 Moderate decrease in GFR 30-59 4 Severe decrease in GFR 15-29 5 Kidney failure <15 (or dialysis) 16 FASTING 10 HOUR 17 Desirable <150 Borderline high 150-199 High 200-499 Very High >500 18 Desirable <200 Borderline high 200-239 High >239 19 Low <40 Desirable: 40-60 High: >60 20 Desirable <100 Near Optimal 100-129 Borderline high 130-159 High 160-189 Very High >189 21 Serum levels of PSA measured using the [employer] DXI Hybritech immunoassay should not be interpreted as absolute evidence of the presence or absence of disease. The PSA value should be used in conjunction with other pertinent clinical diagnostic procedures. The values obtained with different assay methods or kits cannot be used interchangeably. 22 Serum levels of PSA measured using the [employer] DXI Hybritech immunoassay should not be interpreted as absolute evidence of the presence or absence of disease. The PSA value should be used in conjunction with other pertinent clinical diagnostic procedures. The values obtained with different assay methods or kits cannot be used interchangeably. 23 HDL Interpretation: Undesirable: High Risk: Less than 40 MG/DL Desirable: Low Risk: Greater than 60 MG/DL 24 LDL Interpretation: Low Risk Optimal Level: LDL Less than 100 MG/DL Near or Above Optimal: LDL 100-129 MG/DL Borderline High Risk: LDL 130-159 MG/DL High Risk: LDL 160-189 MG/DL Very High Risk: LDL Greater than 189 MG/DL 25 Because ethnic data is not always readily available, this report includes an eGFR for both -Americans and non- Americans. The National Kidney Disease Education Program (NKDEP) does not endorse the use of the MDRD equation for patients that are not between the ages of 18 and 70, are , have extremes of body size, muscle mass, or nutritional status, or are non- or non-. According to the National Kidney Foundation, irrespective of diagnosis, the stage of the disease is based on the level of kidney function: Stage Description GFR(mL/min/1.73 m(2)) 1 Kidney damage with normal or decreased GFR 90 2 Kidney damage with mild decrease in GFR 60-89 3 Moderate decrease in GFR 30-59 4 Severe decrease in GFR 15-29 5 Kidney failure <15 (or dialysis) 26 CHOLESTEROL INTERPRETATION: Desirable: Less than 200 MG/DL Borderline-High Risk: 200-239 MG/DL High-Risk: 240 MG/DL and over 27 HDL INTERPRETATION: Undesirable: High Risk: Less than 40 MG/DL Desirable: Low Risk: Greater than 60 MG/DL 28 LDL INTERPRETATION: Low Risk Optimal Level: LDL Less than 100 MG/DL Near or Above Optimal: LDL 100-129 MG/DL Borderline High Risk: LDL 130-159 MG/DL High Risk: LDL 160-189 MG/DL Very High Risk: LDL Greater than 189 MG/DL 29 Anion gap measurement may be of limited value in the presence of any alkalosis, especially in a combined acid base disorder. . 30 A metabolite of Naproxen, O-desmethylnaproxen, has been shown to interfere with the Jendrassik-Sanger method for measuring total bilirubin. Samples from patients who have taken Naproxen have shown spurious elevation in total bilirubin levels. 31 Because ethnic data is not always readily available, this report includes an eGFR for both -Americans and non- Americans. The National Kidney Disease Education Program (NKDEP) does not endorse the use of the MDRD equation for patients that are not between the ages of 18 and 70, are , have extremes of body size, muscle mass, or nutritional status, or are non- or non-. According to the National Kidney Foundation, irrespective of diagnosis, the stage of the disease is based on the level of kidney function: Stage Description GFR(mL/min/1.73 m(2)) 1 Kidney damage with normal or decreased GFR 90 2 Kidney damage with mild decrease in GFR 60-89 3 Moderate decrease in GFR 30-59 4 Severe decrease in GFR 15-29 5 Kidney failure <15 (or dialysis) 32 Recommended INR for Patients on Oral Anticoagulants Prophylaxis 2.0 - 3.0 Treatment of thrombosis 2.0 - 3.0 Prevention of embolism 2.0 - 3.0 Prevention of embolism from prosthetic heart valves 2.5 - 3.5 33 DIAGNOSIS,TREATMENT,AND THERAPY MUST BE BASED ON THE INR VALUE ALONE. 34 * SERUM LEVELS OF PSA MEASURED USING THE [employer] ACCESS HYBRITECH IMMUNOASSAY SHOULD NOT BE INTERPRETED ABSOLUTE EVIDENCE OF THE PRESENCE OR ABSENCE OF DISEASE. THE PSA VALUE SHOULD BE USED IN CONJUNCTION WITH OTHER PERTINENT CLINICAL DIAGNOSTIC PROCEDURES. 35 Anion gap measurement may be of limited value in the presence of any alkalosis, especially in a combined acid base disorder. . 36 Because ethnic data is not always readily available, this report includes an eGFR for both -Americans and non- Americans. The National Kidney Disease Education Program (NKDEP) does not endorse the use of the MDRD equation for patients that are not between the ages of 18 and 70, are , have extremes of body size, muscle mass, or nutritional status, or are non- or non-. According to the National Kidney Foundation, irrespective of diagnosis, the stage of the disease is based on the level of kidney function: Stage Description GFR(mL/min/1.73 m(2)) 1 Kidney damage with normal or decreased GFR 90 2 Kidney damage with mild decrease in GFR 60-89 3 Moderate decrease in GFR 30-59 4 Severe decrease in GFR 15-29 5 Kidney failure <15 (or dialysis) 37 CHOLESTEROL INTERPRETATION: Desirable: Less than 200 MG/DL Borderline-High Risk: 200-239 MG/DL High-Risk: 240 MG/DL and over 38 HDL INTERPRETATION: Undesirable: High Risk: Less than 40 MG/DL Desirable: Low Risk: Greater than 60 MG/DL 39 LDL INTERPRETATION: Low Risk Optimal Level: LDL Less than 100 MG/DL Near or Above Optimal: LDL 100-129 MG/DL Borderline High Risk: LDL 130-159 MG/DL High Risk: LDL 160-189 MG/DL Very High Risk: LDL Greater than 189 MG/DL 40 NO MRSA ISOLATED 41 Recommended INR for Patients on Oral Anticoagulants Prophylaxis 2.0 - 3.0 Treatment of thrombosis 2.0 - 3.0 Prevention of embolism 2.0 - 3.0 Prevention of embolism from prosthetic heart valves 2.5 - 3.5 42 DIAGNOSIS,TREATMENT,AND THERAPY MUST BE BASED ON THE INR VALUE ALONE. 43 PLEASE NOTE NEW REFERENCE RANGE EFFECTIVE 09. 44 Anion gap measurement may be of limited value in the presence of any alkalosis, especially in a combined acid base disorder. . 45 Note change in reference range as of 02/21/08. The change was based on recommendations from the [place] [employer]. 46 Please note change in reference range effective 07 . 47 A metabolite of Naproxen, O-desmethylnaproxen, has been shown to interfere with the Jendrassik-Shyam method for measuring total bilirubin. Samples from patients who have taken Naproxen have shown spurious elevation in total bilirubin levels. 48 Because ethnic data is not always readily available, this report includes an eGFR for both -Americans and non- Americans. The National Kidney Disease Education Program (NKDEP) does not endorse the use of the MDRD equation for patients that are not between the ages of 18 and 70, are , have extremes of body size, muscle mass, or nutritional status, or are non- or non-. According to the National Kidney Foundation, irrespective of diagnosis, the stage of the disease is based on the level of kidney function: Stage Description GFR(mL/min/1.73 m(2)) 1 Kidney damage with normal or decreased GFR 90 2 Kidney damage with mild decrease in GFR 60-89 3 Moderate decrease in GFR 30-59 4 Severe decrease in GFR 15-29 5 Kidney failure <15 (or dialysis) 49 New Reference Range and Interpretation effective 04/05/2002 TnI (ng/ml) INTERPRETATION Less Than 0.06 ng/mL NOT SUPPORTIVE OF DIAGNOSIS OF [place] 0.06 - 0.50 ng/ml INDETERMINATE: SUGGEST SERIAL STUDIES IF CLINICALLY INDICATED. Greater than 0.5 ng/mL CONSISTENT WITH DIAGNOSIS OF [place] . 50 Anion gap measurement may be of limited value in the presence of any alkalosis, especially in a combined acid base disorder. . 51 Note change in reference range as of 02/21/08. The change was based on recommendations from the [place] [employer]. 52 Please note change in reference range effective 07 . 53 Because ethnic data is not always readily available, this report includes an eGFR for both -Americans and non- Americans. The National Kidney Disease Education Program (NKDEP) does not endorse the use of the MDRD equation for patients that are not between the ages of 18 and 70, are , have extremes of body size, muscle mass, or nutritional status, or are non- or non-. According to the National Kidney Foundation, irrespective of diagnosis, the stage of the disease is based on the level of kidney function: Stage Description GFR(mL/min/1.73 m(2)) 1 Kidney damage with normal or decreased GFR 90 2 Kidney damage with mild decrease in GFR 60-89 3 Moderate decrease in GFR 30-59 4 Severe decrease in GFR 15-29 5 Kidney failure <15 (or dialysis) 54 CHOLESTEROL INTERPRETATION: Desirable: Less than 200 MG/DL Borderline-High Risk: 200-239 MG/DL High-Risk: 240 MG/DL and over 55 HDL INTERPRETATION: Undesirable: High Risk: Less than 40 MG/DL Desirable: Low Risk: Greater than 60 MG/DL 56 LDL INTERPRETATION: Low Risk Optimal Level: LDL Less than 100 MG/DL Near or Above Optimal: LDL 100-129 MG/DL Borderline High Risk: LDL 130-159 MG/DL High Risk: LDL 160-189 MG/DL Very High Risk: LDL Greater than 189 MG/DL 57 * SERUM LEVELS OF PSA MEASURED USING THE [employer] ACCESS HYBRITECH IMMUNOASSAY SHOULD NOT BE INTERPRETED ABSOLUTE EVIDENCE OF THE PRESENCE OR ABSENCE OF DISEASE. THE PSA VALUE SHOULD BE USED IN CONJUNCTION WITH OTHER PERTINENT CLINICAL DIAGNOSTIC PROCEDURES. 58 FASTING 59 Anion gap measurement may be of limited value in the presence of any alkalosis, especially in a combined acid base disorder. . 60 Note change in reference range as of 02/21/08. The change was based on recommendations from the [place] [employer]. 61 Please note change in reference range effective 07 . 62 Because ethnic data is not always readily available, this report includes an eGFR for both -Americans and non- Americans. The National Kidney Disease Education Program (NKDEP) does not endorse the use of the MDRD equation for patients that are not between the ages of 18 and 70, are , have extremes of body size, muscle mass, or nutritional status, or are non- or non-. According to the National Kidney Foundation, irrespective of diagnosis, the stage of the disease is based on the level of kidney function: Stage Description GFR(mL/min/1.73 m(2)) 1 Kidney damage with normal or decreased GFR 90 2 Kidney damage with mild decrease in GFR 60-89 3 Moderate decrease in GFR 30-59 4 Severe decrease in GFR 15-29 5 Kidney failure <15 (or dialysis) 63 CHOLESTEROL INTERPRETATION: Desirable: Less than 200 MG/DL Borderline-High Risk: 200-239 MG/DL High-Risk: 240 MG/DL and over 64 HDL INTERPRETATION: Undesirable: High Risk: Less than 40 MG/DL Desirable: Low Risk: Greater than 60 MG/DL 65 LDL INTERPRETATION: Low Risk Optimal Level: LDL Less than 100 MG/DL Near or Above Optimal: LDL 100-129 MG/DL Borderline High Risk: LDL 130-159 MG/DL High Risk: LDL 160-189 MG/DL Very High Risk: LDL Greater than 189 MG/DL 66 * SERUM LEVELS OF PSA MEASURED USING THE [employer] ACCESS HYBRITECH IMMUNOASSAY SHOULD NOT BE INTERPRETED ABSOLUTE EVIDENCE OF THE PRESENCE OR ABSENCE OF DISEASE. THE PSA VALUE SHOULD BE USED IN CONJUNCTION WITH OTHER PERTINENT CLINICAL DIAGNOSTIC PROCEDURES. 67 PATIENT MAY HAVE RESULTS PER DOCTOR'S AUTHORIZATION. Questions regarding this report should be directed to your doctor. 68 Anion gap measurement may be of limited value in the presence of any alkalosis, especially in a combined acid base disorder. . 69 Note change in reference range as of 02/21/08. The change was based on recommendations from the [place] [employer]. 70 Please note change in reference range effective 07 . 71 CHOLESTEROL INTERPRETATION: Desirable: Less than 200 MG/DL Borderline-High Risk: 200-239 MG/DL High-Risk: 240 MG/DL and over 72 HDL INTERPRETATION: Undesirable: High Risk: Less than 40 MG/DL Desirable: Low Risk: Greater than 60 MG/DL 73 LDL INTERPRETATION: Low Risk Optimal Level: LDL Less than 100 MG/DL Near or Above Optimal: LDL 100-129 MG/DL Borderline High Risk: LDL 130-159 MG/DL High Risk: LDL 160-189 MG/DL Very High Risk: LDL Greater than 189 MG/DL 74 * SERUM LEVELS OF PSA MEASURED USING THE [employer] ACCESS HYBRITECH IMMUNOASSAY SHOULD NOT BE INTERPRETED ABSOLUTE EVIDENCE OF THE PRESENCE OR ABSENCE OF DISEASE. THE PSA VALUE SHOULD BE USED IN CONJUNCTION WITH OTHER PERTINENT CLINICAL DIAGNOSTIC PROCEDURES. 75 FASTING 76 * SERUM LEVELS OF PSA MEASURED USING THE [employer] ACCESS HYBRITECH IMMUNOASSAY SHOULD NOT BE INTERPRETED ABSOLUTE EVIDENCE OF THE PRESENCE OR ABSENCE OF DISEASE. THE PSA VALUE SHOULD BE USED IN CONJUNCTION WITH OTHER PERTINENT CLINICAL DIAGNOSTIC PROCEDURES. 77 Classification: Borderline High . 78 Classification: High . 79 CALCULATED LDL APPROXIMATES THE VALUE OF A DIRECT LDL MEASUREMENT. Classification: Borderline High . 80 Anion gap measurement may be of limited value in the presence of any alkalosis, especially in a combined acid base disorder. . Procedures Date CPT Code Description Status 03/23/2017 39974 Polysomnography Sleep Staging 4+ Parameters Completed 10/09/2015 04328 Nerve Conduction 05-06 Studies Completed 10/09/2015 30653 Needle Electromyography Complete, Five Or More Muscles Completed Studied 09/08/2015 99771 Stress Test Completed 08/28/2015 79009 EKG Tracing & Interpretation Completed 12/26/2011 50259 Inject/Drain Joint/Bursa Major Completed 09/14/2011 64241 Inject/Drain Joint/Bursa Major Completed 07/28/2011 35935 Arthroscopy,Knee,Meniscectomy Medial Or Lateral Completed 07/28/2011 19778 Arthroscopy,Knee,Meniscectomy Medial Or Lateral Completed 07/13/2011 63414 EKG Tracing & Interpretation Completed 06/17/2011 00436 Inject/Drain Joint/Bursa Major Completed 10/05/2004 Colonoscopy Completed Encounters Type Date Location Provider CPT E/M Dx Office Visit 05/23/2017 [facility] Shobha Hughes, 27942 G47.33 10:00a [facility] BROCK, RN, COFFEE MAKER-BC Office Visit 04/06/2017 [facility] Internal Medicine Elpidio Esteban, 01860 M79.606 2:20p - [place] Torsten Carrizales M79.662 M79.661 Office Visit 04/04/2017 10:00a [place] [address] G47.33 [facility] Office Visit 01/26/2017 11:00a [facility] [address] R06.83 [facility] G47.63 R40.0 R09.82 Office Visit 12/09/2016 2:00p [facility] Internal RichieMaximiliano Hawleyd, [address] Z00.01 Medicine - [address] Sofie,FACP E78.4 J32.9 Office Visit 08/28/2015 9:00a [facility] Internal RichieMaximiliano Hawleyd, [address]5831 Z00.00 [facility] - [address] Torsten Carrizales,FACP G60.8 R07.89 E78.4 Z23 Office Visit 12/30/2013 1:00p [facility] Internal Medicine Richie DGuero Ly, [address] V70.0 - Renato aCrrizales,FACP 780.57 272.4 446.5 681.11 Office Visit 05/31/2012 2:30p [facility] Internal Medicine Edna Elena, N.P. 27201 366.9 - Renato V72.84 272.4 380.4 603.9 453.79 Office Visit 12/26/2011 3:15p [facility] M.D. 58650 719.06 C.M.A. 715.96 716.96 Office Visit 07/13/2011 2:30p [facility] Internal Jacquelyn StoryJerson, 38630 V72.83 [facility] N.PGuero Gross 836.0 272.4 453.79 Office Visit 07/06/2011 4:00p [facility] M.D. 10607 836.0 C.M.A. Office Visit 06/17/2011 2:45p [facility] Barnes M.D. 33010 719.06 C.M.A. Office Visit 06/15/2011 12:10p DO Not Use [facility] At RichieMaximiliano Ly, 77253 719.46 Bryn Carrizales,FACP 786.2 453.79 Office Visit 07/22/2010 9:00a DO Not Use [employer] At RichieMaximiliano Ly, 24685 715.16 Bryn Carrizales,FACP 272.4 453.40 727.51 Office Visit 07/01/2010 3:20p DO Not Use [facility] At RichieMaximiliano Ly, 06223 453.40 Bryn Carrizales,FACP 719.46 Office Visit 09/27/2009 3:15a [facility], Hardik Knutson, 73472 386.12 Hospitalists M.Ludmila 780.4 Office Visit 09/26/2009 4:00a [facility], Kitty Spears, 40433 386.12 Hospitalists M.D. Office Visit 09/25/2009 12:30a [facility], Yovani Sibley, 33613 780.4 Hospitalists N.P. Office Visit 05/14/2009 9:00a DO Not Use [facility] At Richie Ly, 73498 272.4 Bryn Carrizales,FACP 721.90 380.4 V70.0 Office Visit 11/28/2008 10:00a DO Not Use [employer] [place] [address] [facility] Office Visit 10/28/2008 9:30a DO Not Use [employer] [place] [address] [facility] Office Visit 05/14/2008 11:00a DO Not Use [employer] [employer] At Richie Ly, 37555 729.82 Bryn Carrizales,FACP 453.8 V76.44 272.4 V03.82 Office Visit 05/15/2007 11:00a DO Not Use [employer] At Richie Ly, 91339 603.9 Bryn Carrizales,FACP 272.4 380.4 V70.0 Plan of Care Future Appointment(s):08/23/2017 10:00 am - Shobha Hughes DNP, RN, COFFEE [employer]ER-BC at [facility]12/13/2017 10:30 am - Richie Ly M.D.,FACP at [facility] Internal Medicine - [address]07/07/2017 - Richie Ly M.D.,FACPJ18.9 Pneumonia, unspecified organismNew Xrays:Chest PA & Lat 2 VWSComments:Given that you have been sick for 2 weeks and are experiencing trouble breathing with exertion, havechest Xray completed today at [facility] to rule out pneumonia.Also, complete blood work to rule out anemia which can be the cause of your fatigue.
[2017-08-04 19:45] VITALS: BP 153/89
--- NOTE | 2017-08-04 19:52 | UC ---
Skin Complaint HPI - HPI Summary HPI Summary: c/o redness, purulent drainage from nailbed for a week after he cut his toenail. States he does not feel any pain after drainage happened, he has been soaking with epson salts. - History of Current Complaint Chief Complaint: UCLowerExtremity Time Seen by Provider: 08/04/17 19:34 Stated Complaint: FOOT COMPLAINT Hx Obtained From: Patient Onset/Duration: Sudden Onset, Lasting Days Skin Exposure Onset/Duration: Days Ago Timing: Constant Onset Severity: Mild Current Severity: Mild Pain Intensity: 0 Location: Discrete, Foot (Right) Associated Signs & Symptoms: Positive: Negative Related History: Trauma - Allergy/Home Medications Allergies/Adverse Reactions: Allergies Allergy/AdvReac Type Severity Reaction Status Date / Time codeine Allergy Nausea Verified 08/04/17 17:14 Home Medications: Home Medications Ibuprofen [Advil] 400 mg PO 08/04/17 [History] Review of Systems Constitutional: Negative Skin: Other - swelling and redness All Other Systems Reviewed And Are Negative: Yes PMH/Surg Hx/FS Hx/Imm Hx Previously Healthy: Yes GI/ History: Other - BPH, ED Other GI/ History: ED, BPH - Surgical History Surgical History: Yes Surgery Procedure, Year, and Place: 2010 LEFT [place] [facility] [place]ARACT 2013 [facility] [place] DENTAL IMPLANT - Social History Alcohol Use: Daily Alcohol Amount: 1-2 GLASS WINE/DAY Substance Use Type: None Smoking Status (MU): Never Smoked Tobacco Physical Exam Triage Information Reviewed: Yes Appearance: Well-Appearing, Well-Nourished Vital Signs: Initial Vital Signs Temp 97.4 F 08/04/17 17:09 Pulse 59 08/04/17 17:09 Resp 18 08/04/17 17:09 BP 122/73 08/04/17 17:09 Pulse Ox 98 08/04/17 17:09 Vital Signs Reviewed: Yes Eye Exam: Normal Respiratory: Positive: Chest non-tender Cardiovascular: Positive: Pulses Normal, Brisk Capillary Refill Musculoskeletal Exam: Normal Skin Exam: Other - erythema on right big toe distal phalange and surrounding nailbed with scant purulent collection under nail. Course/Dx - Course Course Of Treatment: start antibiotics as prescribed. Soak in epson salts, warm compresses, f/u with PCP - Diagnoses Provider Diagnoses: cellulitis right big toe. paronichia Discharge - Discharge Plan Condition: Stable Disposition: HOME Prescriptions: Sulfamethox/Trimethoprim DS* [Bactrim DS 800/160 TAB*] 1 tab PO BID #10 tab Patient Education Materials: Cellulitis (ED) Referrals: Richie Ly MD [Primary Care Provider] -
== END 2017-08-04 19:45 | disposition home or self-care (01) ==
LOC: UCEAST 15:24
DX: L03.031 Cellulitis of right toe (principal)
CPT/HCPCS: 99212; G0463

== ENCOUNTER 2021-06-01 10:50 | Observation (INO) ==
[~2021-06-01 10:50] MED LIST: Buffered Lidocaine 1% SYRIN 1 ml INTRADERM ONE; Lactated Ringers 1000 ml BAG 1,000 ML IV SCH
[2021-06-01] MEDS ORDERED: ceFAZolin 2 GM PREMIX 2 GM/50 ML BAG ONE (11:34)
[2021-06-01] MEDS ORDERED: Lidocaine 2% PF 5 ML VIAL ONE (11:50)
[2021-06-01] MEDS ORDERED: Phenylephrine IV 10 MG/ML 1 ml VIAL ONE (11:50)
[2021-06-01] MEDS ORDERED: Dexamethasone IV 4 MG/ML VIAL 1 ml VIAL ONE (11:51)
[2021-06-01] MEDS ORDERED: Ondansetron 4 mg VIAL 2 MG/ML 2 ml VIAL ONE (11:51)
[2021-06-01] MEDS ORDERED: Midazolam 2 mg/2 ml VIAL 1 mg/ml 2 ml VIAL (2 mg) ONE (12:15)
[2021-06-01] MEDS ORDERED: fentaNYL 100 mcg/2 ml 50 MCG/ML VIAL ONE (12:15)
[2021-06-01] MEDS ORDERED: Bupivacaine 0.25% SDV 30 ML ONE (12:22)
[2021-06-01] MEDS ORDERED: Lidocaine 1% MPF 5 ML VIAL ONE (12:22)
[2021-06-01] MEDS ORDERED: ROPIVACAINE 5 MG/ML 30 ML BTL (0.5%) ONE (12:45)
[2021-06-01] MEDS ORDERED: Morphine 2 MG/ML SYRINGE IV PRN (14:35)
[2021-06-01] MEDS ORDERED: diPHENhydraMINE 25 mg TAB PO PRN (14:35)
[2021-06-01] MEDS ORDERED: Ondansetron 4 mg VIAL 2 MG/ML 2 ml VIAL IV PRN (14:35)
[2021-06-01] MEDS ORDERED: Ondansetron ODT 4 mg TAB 4 MG TAB PO PRN (14:35)
[2021-06-01] MEDS ORDERED: Magnesium Hydroxide LIQ 30 ML UDC PO PRN (14:35)
[2021-06-01] MEDS ORDERED: diPHENhydraMINE IV 50 MG/ML 1 ml VIAL (BENADRYL) IV PRN (14:35)
[2021-06-01] MEDS ORDERED: Lactulose 30 ml UDC PO PRN (14:35)
[2021-06-01] MEDS ORDERED: tadalafiL 5 MG TABLET (NF) PO PRN (14:42)
[2021-06-01] MEDS ORDERED: Lactated Ringers 1000 ml BAG 1,000 ML IV SCH (15:00)
[2021-06-01] MEDS ORDERED: Propofol 10 MG/ML 20 ML BTL ONE (15:29)
[2021-06-01] MEDS: NS 0.9% 1000 ml BAG 1,000 ML IV SCH (18:13)
[2021-06-01] MEDS: Magnesium Hydroxide LIQ 30 ML UDC PO SCH (22:20)
[2021-06-01] MEDS: ceFAZolin 1 GM ADVAN 1 GM in NS 0.9% 50 ML 50 ML IVPB SCH (22:21)
[2021-06-02] MEDS: NS 0.9% 1000 ml BAG 1,000 ML IV SCH (02:04)
[2021-06-02] MEDS: ceFAZolin 1 GM ADVAN 1 GM in NS 0.9% 50 ML 50 ML IVPB SCH ×2 (05:54→12:52)
[2021-06-02 05:59] LABS: Hematocrit 36 % (42-52); Mean Platelet Volume 8.3 fL (7.4-10.4); Platelet Count 192 10^3/uL (150-450)
[2021-06-02 06:26] LABS: Calcium 8.3 mg/dL (8.6-10.3); Potassium 4.3 mmol/L (3.5-5.0)
[2021-06-02] MEDS: Magnesium Hydroxide LIQ 30 ML UDC PO SCH (08:24)
[2021-06-02] MEDS ORDERED: Vitamin THERAPEUTIC TAB PO SCH (09:00)
[2021-06-02 11:37] VITALS: BP 132/80
== END 2021-06-02 13:40 | disposition home or self-care (01) ==
LOC: OR 10:50 → SSU 10:50
PROVIDERS: ADMIT Orthopaedic Surgery Adult Reconstructive Orthopaedic Surgery; ATTEND Orthopaedic Surgery Adult Reconstructive Orthopaedic Surgery

== ENCOUNTER 2021-11-01 06:05 | Observation (INO) ==
[~2021-11-01 06:05] MED LIST changes: +HYDROcodone/ACETAMIN 5/325 mg TAB PO PRN; +Metoclopramide 5 MG/ML VIAL (10 mg) IV PRN; +Naloxone 0.4 mg VIAL 0.4 mg/ml 1 ml VIAL IV PRN; +Ondansetron 4 mg VIAL 2 MG/ML 2 ml VIAL IV PRN; +fentaNYL 100 mcg/2 ml 50 MCG/ML VIAL IV PRN
[2021-11-01] MEDS ORDERED: ceFAZolin 2 GM PREMIX 2 GM/50 ML BAG ONE (06:39)
[2021-11-01] MEDS ORDERED: Vancomycin 1,000 MG VIAL ONE (06:56)
[2021-11-01] MEDS ORDERED: Bupivacaine 0.5% SDV PF 30ML VIAL ONE (07:13)
[2021-11-01] MEDS ORDERED: fentaNYL 100 mcg/2 ml 50 MCG/ML VIAL ONE (07:21)
[2021-11-01] MEDS ORDERED: Midazolam 2 mg/2 ml VIAL 1 mg/ml 2 ml VIAL (2 mg) ONE (07:21)
[2021-11-01] MEDS ORDERED: Lidocaine 2% PF 5 ML VIAL ONE (08:05)
[2021-11-01] MEDS ORDERED: Propofol 10 MG/ML 20 ML BTL ONE (08:05)
[2021-11-01] MEDS ORDERED: Rocuronium 50 mg VIAL 10 mg/ml 5 ml VIAL (50 mg) ONE ×3 (08:06→12:38)
[2021-11-01] MEDS ORDERED: Ondansetron 4 mg VIAL 2 MG/ML 2 ml VIAL ONE (08:07)
[2021-11-01] MEDS ORDERED: Acetaminophen IV 1 GM/100ML 100 ML IV ONE (08:07)
[2021-11-01] MEDS ORDERED: Dexamethasone IV 4 MG/ML VIAL 1 ml VIAL ONE (08:07)
[2021-11-01] MEDS ORDERED: EPHEDrine (Pressors) 50 MG/ML VIAL ONE (08:49)
[2021-11-01] MEDS ORDERED: Lactulose 30 ml UDC PO PRN (11:28)
[2021-11-01] MEDS ORDERED: Ondansetron ODT 4 mg TAB 4 MG TAB PO PRN (11:28)
[2021-11-01] MEDS ORDERED: Morphine 2 MG/ML SYRINGE IV PRN (11:28)
[2021-11-01] MEDS ORDERED: Ondansetron 4 mg VIAL 2 MG/ML 2 ml VIAL IV PRN (11:28)
[2021-11-01] MEDS ORDERED: Magnesium Hydroxide LIQ 30 ML UDC PO PRN (11:28)
[2021-11-01] MEDS ORDERED: ceFAZolin 1 GM ADVAN 1 GM in NS 0.9% 50 ML 50 ML IVPB SCH ×2 (12:00→16:00)
[2021-11-01] MEDS ORDERED: HYDROcodone/ACETAMIN 5/325 mg TAB ONE (12:11)
[2021-11-01] MEDS: D5W 1/2 NS 1000 ml BAG 1,000 ML IV SCH ×2 (14:00→22:47)
[2021-11-01] MEDS: ceFAZolin VIAL 1 GM in NS 0.9% 50 ML 50 ML IVPB SCH (16:16)
[2021-11-01] MEDS: Magnesium Hydroxide LIQ 30 ML UDC PO SCH (20:55)
[2021-11-02] MEDS: ceFAZolin VIAL 1 GM in NS 0.9% 50 ML 50 ML IVPB SCH ×2 (00:05→09:10)
[2021-11-02 05:25] LABS: Hematocrit 34 % (42-52); Hemoglobin 11.2 g/dL (14.0-18.0); Mean Platelet Volume 7.9 fL (7.4-10.4); Platelet Count 168 10^3/uL (150-450)
[2021-11-02 05:44] LABS: Potassium 3.6 mmol/L (3.5-5.0); eGFR CKD-EPI 90.1 (>60)
[2021-11-02] MEDS ORDERED: Vitamin THERAPEUTIC TAB PO SCH (09:00)
[2021-11-02] MEDS: Magnesium Hydroxide LIQ 30 ML UDC PO SCH (09:09)
[2021-11-02 11:06] VITALS: BP 128/80
== END 2021-11-02 11:58 | disposition home or self-care (01) ==
LOC: INTOOBSV 06:05 → AA 06:05 → SSU 13:46
PROVIDERS: ADMIT Orthopaedic Surgery; ATTEND Orthopaedic Surgery

== ENCOUNTER 2022-04-26 15:58 | Observation (INO) ==
[2022-04-26] MEDS ORDERED: Lactated Ringers 1000 ml BAG 1,000 ML IV ONE (16:10)
[2022-04-26] MEDS ORDERED: Ondansetron 4 mg VIAL 2 MG/ML 2 ml VIAL ONE (16:23)
[2022-04-26 16:31] LABS: ABS Eosinophils 0.2 10^3/ul (0-0.6); ABS Lymphocytes 2.1 10^3/ul (1.0-4.8); ABS Monocytes 0.6 10^3/ul (0-0.8); ABS Neutrophils 5.4 10^3/ul (1.5-7.7); Eosinophil % 1.8 %; Hematocrit 44 % (42-52); Hemoglobin 14.4 g/dL (14.0-18.0); Lymphocyte % 24.9 %; Mean Corpuscular HGB Conc 33 g/dL (31-36); Mean Corpuscular Hemoglobin 31 pg (27-31); Mean Corpuscular Volume 94 fL (80-94); Mean Platelet Volume 8.1 fL (7.4-10.4); Platelet Count 194 10^3/uL (150-450); Red Blood Count 4.68 10^6 /uL (4.18-5.48); Red Cell Distribution Width 15 % (10-15); White Blood Count 8.3 10^3/uL (3.5-10.8)
[2022-04-26 16:38] LABS: INR 1.15 (0.89-1.11)
[2022-04-26] MEDS ORDERED: Ondansetron 4 mg VIAL 2 MG/ML 2 ml VIAL IV ONE ×2 (16:41→17:08)
[2022-04-26 17:14] LABS: Albumin 4.2 g/dL (3.2-5.2); Albumin/Globulin Ratio 1.7 (1-3); Calcium 9.3 mg/dL (8.6-10.3); Globulin 2.5 g/dL (2-4); Total Bilirubin 1.4 mg/dL (0.2-1.0); Total Protein 6.7 g/dL (6.4-8.9); eGFR CKD-EPI 73.8 (>60)
[2022-04-26 17:58] LABS: High Sensitivity Troponin 1 Hr 69 pg/mL (<20)
[2022-04-26] MEDS ORDERED: Promethazine INJ(RESTRICTED) 25 MG/ML 1 ml VIAL IM ONE (22:15)
[2022-04-26] MEDS ORDERED: Prochlorperazine 5 mg/ml 2 ml VIAL (10 mg) IM ONE (23:00)
[2022-04-26] MEDS ORDERED: Prochlorperazine 5 mg/ml 2 ml VIAL (10 mg) IV ONE (23:00)
[2022-04-27] MEDS ORDERED: Ondansetron 4 mg VIAL 2 MG/ML 2 ml VIAL IV PRN (00:45)
[2022-04-27 01:09] LABS: Digoxin 0.3 ng/ml (0.8-2.0)
[2022-04-27] MEDS ORDERED: NS 0.9% 1000 ml BAG 1,000 ML IV SCH (02:30)
[2022-04-27 03:41] LABS: Magnesium 2.1 mg/dL (1.9-2.7)
[2022-04-27 07:55] LABS: Calcium 8.7 mg/dL (8.6-10.3); Magnesium 2.1 mg/dL (1.9-2.7); Potassium 4.3 mmol/L (3.5-5.0); eGFR CKD-EPI 87.5 (>60)
[2022-04-28 08:02] VITALS: BP 152/98
== END 2022-04-28 12:24 | disposition home or self-care (01) ==
LOC: ED 15:58 → EDHOLD 15:58 → SUATTDRO 04-27 00:41 → EDHOLD 04-27 12:49 → SSU 04-27 13:11
PROVIDERS: ADMIT Internal Medicine; ATTEND Internal Medicine